=== PATIENT | male | born 1965 | race American Indian/Alaskan Native ===

== ENCOUNTER 2016-04-29 17:07 | Inpatient (IN) | payer SELFPAY ==
--- NOTE | 2016-04-29 18:01 | Emergency Department Report ---
Chief Complaint: Abdominal Pain Stated Complaint: SOB/ABD PAIN/DIZZINESS Time Seen by Provider: 04/29/16 17:46 - HPI History of Present Illness: 50-year-old -I[place]ic male with a past medical history of hypertension and is on lisinopril comes in today for complaint of lower abdominal pain for 4 days. He admits to nausea and vomiting diarrhea as well as fever chills and shortness of breath. Hhe denies using any [id number] medications. Denies dysuria or hematuria - Exam Vital Signs: Vital Signs 04/29/16 17:33 Temperature 98.2 F Pulse Rate 89 Respiratory 20 Rate Blood Pressure 127/92 O2 Sat by Pulse 98 Oximetry Physical Exam: He is alert and oriented 3 cardiovascular S1-S2 regular rate and rhythm respiratory clear tobilateral abdomen soft nontender nondistended. MSE screening note: Focused history and physical exam performed. Due to findings the following was ordered: Dominant protocol order patient be evaluated Main ER ED Disposition for MSE Condition: Stable
[2016-04-29 18:57] LABS: Basophils % (Auto) 0.5 % (0.0-1.8); Eosinophils % (Auto) 0.9 % (0.0-4.3); Hematocrit 41.8 % (35.5-45.6); Hemoglobin 13.9 gm/dl (11.8-15.2); Mean Corpuscular HGB Conc 33 % (32-34); Mean Corpuscular Hemoglobin 29 pg (28-32); Mean Corpuscular Volume 87 fl (84-94); Platelet Count 588 K/mm3 (140-440); Red Blood Count 4.82 M/mm3 (3.65-5.03); Red Cell Distribution Width 15.7 % (13.2-15.2)
[2016-04-29 19:15] LABS: Albumin 4.2 g/dL (3.9-5); Albumin/Globulin Ratio 1.1 %; Alkaline Phosphatase 96 units/L (35-129); Bilirubin,Total 0.8 mg/dL (0.1-1.2); Blood Urea Nitrogen 20 mg/dL (9-20); Calcium 9.2 mg/dL (8.4-10.2); Carbon Dioxide 27 mmol/L (22-30); Chloride 89.7 mmol/L (98-107); Glucose 120 mg/dL (75-100); Lipase 31 units/L (13-60); Sodium 132 mmol/L (137-145); Total Protein 8.2 g/dL (6.3-8.2)
--- NOTE | 2016-04-29 20:10 | Emergency Department Report ---
ED Abdominal Pain HPI - General Chief Complaint: Abdominal Pain Stated Complaint: SOB/ABD PAIN/DIZZINESS Time Seen by Provider: 04/29/16 17:46 Source: patient Mode of arrival: Ambulatory Limitations: No Limitations - History of Present Illness Initial Comments: 50-year-old -Italian male with a past medical history of hypertension and is on lisinopril comes in today for complaint of lower abdominal pain for 4 days. He admits to nausea and vomiting diarrhea as well as fever /chills and shortness of breath. He denies using any [id number] medications. Denies dysuria or hematuria. Patient reports that pain is crampy and achy and 10 out of 10. He reports he was having shortness of breath and exertion earlier today but he is not having any shortness of breath at present. He denies any chest pain. He is located on the lower abdomen. Denies any back pain, testicular or scrotal pain. Patient said the last time he vomited was yesterday times one and the last time he had diarrhea 3 was yesterday. He said he is having some nausea but he denies any nausea at present. pt report no solid food for 4 days but is able to drink beet juice and water Without vomiting. Denies any swelling to his extremities. Denies any personal history of blood clots or family history of blood clots. Denies any hormones. Denies recent long distance travel by plane or car. Denies any calf pain. MD Complaint: abdominal pain Onset/Timin -: days(s) Location: LLQ, RLQ Migration to: no migration Severity: severe Severity scale (0 -10): 10 Quality: cramping, aching Consistency: constant Improves With: nothing Worsens With: nothing Context: other (none) Associated Symptoms: nausea, vomiting, diarrhea, anorexia. denies: fever, chills, constipation, dysuria, hematemesis, hematochezia, melena, hematuria, syncope - Related Data Previous Rx's Medication Instructions Recorded Last Taken Type Cyclobenzaprine [Flexeril] 10 mg PO TID #12 tab 12/28/12 Unknown Rx Hydrocodone Bit/Acetaminophen 1 each PO Q6H PRN #12 tablet 12/28/12 Unknown Rx [Lortab 5-500 Tablet] Dicyclomine [Bentyl] 10 mg PO QID PRN #20 capsule 04/30/16 Unknown Rx Ondansetron [Zofran Odt] 4 mg PO QID PRN #20 tab.rapdis 04/30/16 Unknown Rx Allergies Allergy/AdvReac Type Severity Reaction Status Date / Time No Known Allergies Allergy Unverified 12/28/12 07:07 ED Review of Systems ROS: Stated complaint: SOB/ABD PAIN/DIZZINESS Other details as noted in HPI Comment: All other systems reviewed and negative Constitutional: denies: chills, fever ENT: denies: throat pain Respiratory: shortness of breath, SOB with exertion. denies: cough, SOB at rest , stridor, wheezing Cardiovascular: denies: chest pain, palpitations, edema, syncope Gastrointestinal: abdominal pain, nausea, vomiting, diarrhea. denies: constipation, hematemesis, melena, hematochezia Genitourinary: denies: urgency, dysuria, frequency, hematuria, discharge, testicular pain, testicular mass Musculoskeletal: denies: back pain, joint swelling, arthralgia Skin: denies: rash Neurological: weakness. denies: headache, numbness, paresthesias, confusion, abnormal gait, vertigo ED Past Medical Hx - Past Medical History Previous Medical History?: Yes Hx Hypertension: Yes - Surgical History Past Surgical History?: Yes Additional Surgical History: Back surgery - Family History Family history: hypertension - Social History Smoking Status: Never Smoker Substance Use Type: None - Medications Home Medications: Home Medications Medication Instructions Recorded Confirmed Last Taken Type Cyclobenzaprine [Flexeril] 10 mg PO TID #12 tab 12/28/12 Unknown Rx Hydrocodone Bit/Acetaminophen 1 each PO Q6H PRN #12 tablet 12/28/12 Unknown Rx [Lortab 5-500 Tablet] Dicyclomine [Bentyl] 10 mg PO QID PRN #20 capsule 04/30/16 Unknown Rx Ondansetron [Zofran Odt] 4 mg PO QID PRN #20 tab.rapdis 04/30/16 Unknown Rx ED Physical Exam - General Limitations: No Limitations General appearance: alert, in no apparent distress - Head Head exam: Present: atraumatic, normocephalic, normal inspection - Eye Eye exam: Present: normal appearance, PERRL, EOMI. Absent: conjunctival injection Pupils: Present: normal accommodation - ENT ENT exam: Present: normal exam, normal orophraynx, mucous membranes moist, TM's normal bilaterally, normal external ear exam - Neck Neck exam: Present: normal inspection, full ROM. Absent: tenderness, meningismus, lymphadenopathy - Respiratory Respiratory exam: Present: normal lung sounds bilaterally. Absent: respiratory distress, chest wall tenderness - Cardiovascular Cardiovascular Exam: Present: regular rate, normal rhythm, normal heart sounds - GI/Abdominal GI/Abdominal exam: Present: soft, tenderness, guarding, normal bowel sounds. Absent: distended, rigid, organomegaly, mass, bruit, pulsatile mass, hernia - Extremities Exam Extremities exam: Present: normal inspection, full ROM, normal capillary refill. Absent: tenderness, pedal edema, joint swelling, calf tenderness - Back Exam Back exam: Present: normal inspection, full ROM. Absent: tenderness, CVA tenderness (R), CVA tenderness (L), muscle spasm, paraspinal tenderness, vertebral tenderness, rash noted - Neurological Exam Neurological exam: Present: alert, oriented X3, normal gait, reflexes normal. Absent: motor sensory deficit - Psychiatric Psychiatric exam: Present: normal affect, normal mood - Skin Skin exam: Present: warm, dry, intact, normal color. Absent: rash ED Course Vital Signs 04/29/16 04/29/16 04/30/16 17:33 22:51 01:37 Temperature 98.2 F 98.0 F 99.6 F Pulse Rate 89 76 84 Respiratory 20 18 20 Rate Blood Pressure 127/92 Blood Pressure 145/83 [Left] Blood Pressure 145/86 [Right] O2 Sat by Pulse 98 97 99 Oximetry 04/30/16 08:32 Temperature 98.8 F Pulse Rate 76 Respiratory 18 Rate Blood Pressure Blood Pressure [Left] Blood Pressure 141/81 [Right] O2 Sat by Pulse 100 Oximetry Vital Signs 04/29/16 04/29/16 17:33 22:51 Temperature 98.2 F 98.0 F Pulse Rate 89 76 Respiratory 20 18 Rate Blood Pressure 127/92 Blood Pressure 145/83 [Left] O2 Sat by Pulse 98 97 Oximetry Vital Signs 04/29/16 04/29/16 04/30/16 17:33 22:51 01:37 Temperature 98.2 F 98.0 F 99.6 F Pulse Rate 89 76 84 Respiratory 20 18 20 Rate Blood Pressure 127/92 Blood Pressure 145/83 [Left] Blood Pressure 145/86 [Right] O2 Sat by Pulse 98 97 99 Oximetry 04/30/16 08:32 Temperature 98.8 F Pulse Rate 76 Respiratory 18 Rate Blood Pressure Blood Pressure [Left] Blood Pressure 141/81 [Right] O2 Sat by Pulse 100 Oximetry - Reevaluation(s) Reevaluation #1: 04/29/16 22:47 Patient received normal saline 1 L IV bolus in emergency room and he stated he was feeling better. He denies any nausea or abdominal pain at present. Abdominal exam still with tenderness to lower quadrant. Tenderness is more on the left lower quadrant. She received Toradol 30 mg IV and Zofran 4 mg IV. Sodium was at 132 he received IV fluid normal saline 1 L. patient is afebrile with normal vital signs. Urinalysis within normal limits and kidney function is stable. And then CT scan of the abdomen and pelvis with IV contrast. D- dimer and PT PTT ordered. Patient is neurologically intact given sodium of 132.. Reevaluation #2: 04/30/16 00:14 D-dimer is elevated going CTA Reevaluation #3: 04/30/16 00:18 Additional 1 L of IV fluid normal saline given to the increased risk of IV contrast nephropathy Reevaluation #4: 04/30/16 01:32 I discussed case with Dr. Villa on patient presentation, clinical and diagnostic findings and lab findings. He said he will take patient over and managed patient himself. VQ scan ordered and technologist called in. updated on current event. Reevaluation #5: 04/30/16 01:39 Care of patient was signed over to per his request. Time troponin ordered 04/30/16 04:17 Patient is stable seen and evaluated by Dr. Villa second troponin was negative. 04/30/16 08:[address] Timmons in patient lab work. Patient with elevated platelet at 588, elevated d-dimer and low grade temperature. He also has ileitis to large portion off is ileum with pleural effusion. It was decided the patient will be admitted. Patient lactic acid is a 2.5. Blood cultures and urine cultures sent. Patient started on Zosyn 4.5 g IV. 04/30/16 09:14 Patient will be admitted to hospitalist service. I spoke with Dr. Paige and he will assume care of patient. 04/30/16 09:24 ED Medical Decision Making - Lab Data Result diagrams: 04/29/16 18:41 04/29/16 18:41 Lab Results 04/29/16 04/29/16 04/29/16 Range/Units 18:41 18:41 20:33 WBC 11.0 (4.5-11.0) K/mm3 RBC 4.82 (3.65-5.03) M/mm3 Hgb 13.9 (11.8-15.2) gm/dl Hct 41.8 (35.5-45.6) % MCV 87 (84-94) fl MCH 29 (28-32) pg MCHC 33 (32-34) % RDW 15.7 H (13.2-15.2) % Plt Count 588 H (140-440) K/mm3 Lymph % (Auto) 16.2 (13.4-35.0) % [place] % (Auto) 7.3 (0.0-7.3) % Eos % (Auto) 0.9 (0.0-4.3) % Baso % (Auto) 0.5 (0.0-1.8) % Lymph # 1.8 (1.2-5.4) K/mm3 [place] # 0.8 (0.0-0.8) K/mm3 Eos # 0.1 (0.0-0.4) K/mm3 Baso # 0.1 (0.0-0.1) K/mm3 Seg Neutrophils % 75.1 H (40.0-70.0) % Seg Neutrophils # 8.3 H (1.8-7.7) K/mm3 Sodium 132 L (137-145) mmol/L Potassium 4.6 (3.6-5.0) mmol/L Chloride 89.7 L (98-107) mmol/L Carbon Dioxide 27 (22-30) mmol/L Anion Gap 20 mmol/L BUN 20 (9-20) mg/dL Creatinine 1.0 (0.8-1.5) mg/dL Estimated GFR > 60 ml/min BUN/Creatinine Ratio 20.00 % Glucose 120 H (75-100) mg/dL Calcium 9.2 (8.4-10.2) mg/dL Total Bilirubin 0.8 (0.1-1.2) mg/dL AST 31 (5-40) units/L ALT 38 (7-56) units/L Alkaline Phosphatase 96 (35-129) units/L Total Creatine Kinase 59 (55-170) units/L CK-MB (CK-2) < 1.0 (0.0-4.0) ng/mL CK-MB (CK-2) Rel Index 1.6 (0-4) Troponin T < 0.010 (0.00-0.029) ng/mL Total Protein 8.2 (6.3-8.2) g/dL Albumin 4.2 (3.9-5) g/dL Albumin/Globulin Ratio 1.1 % Lipase 31 (13-60) units/L Urine Color (Yellow) Urine Turbidity (Clear) Urine pH (5.0-7.0) Ur Specific [place] (1.003-1.030) Urine Protein (Negative) mg/dL Urine Glucose (UA) (Negative) mg/dL Urine Ketones (Negative) mg/dL Urine Blood (Negative) Urine Nitrite (Negative) Urine Bilirubin (Negative) Urine Urobilinogen (<2.0) mg/dL Ur Leukocyte Esterase (Negative) Urine WBC (Auto) (0.0-6.0) /HPF Urine RBC (Auto) (0.0-6.0) /HPF U Epithel Cells (Auto) (0-13.0) /HPF Urine Mucus /HPF /16/ Range/Units Unknown WBC (4.5-11.0) K/mm3 RBC (3.65-5.03) M/mm3 Hgb (11.8-15.2) gm/dl Hct (35.5-45.6) % MCV (84-94) fl MCH (28-32) pg MCHC (32-34) % RDW (13.2-15.2) % Plt Count (140-440) K/mm3 Lymph % (Auto) (13.4-35.0) % [place] % (Auto) (0.0-7.3) % Eos % (Auto) (0.0-4.3) % Baso % (Auto) (0.0-1.8) % Lymph # (1.2-5.4) K/mm3 [place] # (0.0-0.8) K/mm3 Eos # (0.0-0.4) K/mm3 Baso # (0.0-0.1) K/mm3 Seg Neutrophils % (40.0-70.0) % Seg Neutrophils # (1.8-7.7) K/mm3 Sodium (137-145) mmol/L Potassium (3.6-5.0) mmol/L Chloride (98-107) mmol/L Carbon Dioxide (22-30) mmol/L Anion Gap mmol/L BUN (9-20) mg/dL Creatinine (0.8-1.5) mg/dL Estimated GFR ml/min BUN/Creatinine Ratio % Glucose (75-100) mg/dL Calcium (8.4-10.2) mg/dL Total Bilirubin (0.1-1.2) mg/dL AST (5-40) units/L ALT (7-56) units/L Alkaline Phosphatase (35-129) units/L Total Creatine Kinase (55-170) units/L CK-MB (CK-2) (0.0-4.0) ng/mL CK-MB (CK-2) Rel Index (0-4) Troponin T (0.00-0.029) ng/mL Total Protein (6.3-8.2) g/dL Albumin (3.9-5) g/dL Albumin/Globulin Ratio % Lipase (13-60) units/L Urine Color Char (Yellow) Urine Turbidity Clear (Clear) Urine pH 6.0 (5.0-7.0) Ur Specific [place] 1.020 (1.003-1.030) Urine Protein <15 mg/dl (Negative) mg/dL Urine Glucose (UA) Neg (Negative) mg/dL Urine Ketones Neg (Negative) mg/dL Urine Blood Neg (Negative) Urine Nitrite Neg (Negative) Urine Bilirubin Neg (Negative) Urine Urobilinogen 4.0 (<2.0) mg/dL Ur Leukocyte Esterase Neg (Negative) Urine WBC (Auto) 1.0 (0.0-6.0) /HPF Urine RBC (Auto) 1.0 (0.0-6.0) /HPF U Epithel Cells (Auto) < 1.0 (0-13.0) /HPF Urine Mucus Few /HPF Urine culture pending Blood culture pending Lactic acid at 2.5 Lab Results 03/16/17 03/16/17 03/16/17 Range/Units 18:41 18:41 20:33 WBC 11.0 (4.5-11.0) K/mm3 RBC 4.82 (3.65-5.03) M/mm3 Hgb 13.9 (11.8-15.2) gm/dl Hct 41.8 (35.5-45.6) % MCV 87 (84-94) fl MCH 29 (28-32) pg MCHC 33 (32-34) % RDW 15.7 H (13.2-15.2) % Plt Count 588 H (140-440) K/mm3 Lymph % (Auto) 16.2 (13.4-35.0) % [place] % (Auto) 7.3 (0.0-7.3) % Eos % (Auto) 0.9 (0.0-4.3) % Baso % (Auto) 0.5 (0.0-1.8) % Lymph # 1.8 (1.2-5.4) K/mm3 [place] # 0.8 (0.0-0.8) K/mm3 Eos # 0.1 (0.0-0.4) K/mm3 Baso # 0.1 (0.0-0.1) K/mm3 Seg Neutrophils % 75.1 H (40.0-70.0) % Seg Neutrophils # 8.3 H (1.8-7.7) K/mm3 PT (12.2-14.9) Sec. INR (0.87-1.13) APTT (24.2-36.6) Sec. D-Dimer (0-234) ng/mlDDU VBG pH (7.320-7.420) Sodium 132 L (137-145) mmol/L Potassium 4.6 (3.6-5.0) mmol/L Chloride 89.7 L (98-107) mmol/L Carbon Dioxide 27 (22-30) mmol/L Anion Gap 20 mmol/L BUN 20 (9-20) mg/dL Creatinine 1.0 (0.8-1.5) mg/dL Estimated GFR > 60 ml/min BUN/Creatinine Ratio 20.00 % Glucose 120 H (75-100) mg/dL Lactic Acid (0.7-2.0) mmol/L Calcium 9.2 (8.4-10.2) mg/dL Total Bilirubin 0.8 (0.1-1.2) mg/dL AST 31 (5-40) units/L ALT 38 (7-56) units/L Alkaline Phosphatase 96 (35-129) units/L Total Creatine Kinase 59 (55-170) units/L CK-MB (CK-2) < 1.0 (0.0-4.0) ng/mL CK-MB (CK-2) Rel Index 1.6 (0-4) Troponin T < 0.010 (0.00-0.029) ng/mL Total Protein 8.2 (6.3-8.2) g/dL Albumin 4.2 (3.9-5) g/dL Albumin/Globulin Ratio 1.1 % Lipase 31 (13-60) units/L Urine Color (Yellow) Urine Turbidity (Clear) Urine pH (5.0-7.0) Ur Specific [place] (1.003-1.030) Urine Protein (Negative) mg/dL Urine Glucose (UA) (Negative) mg/dL Urine Ketones (Negative) mg/dL Urine Blood (Negative) Urine Nitrite (Negative) Urine Bilirubin (Negative) Urine Urobilinogen (<2.0) mg/dL Ur Leukocyte Esterase (Negative) Urine WBC (Auto) (0.0-6.0) /HPF Urine RBC (Auto) (0.0-6.0) /HPF U Epithel Cells (Auto) (0-13.0) /HPF Urine Mucus /HPF 04/29/16 04/29/16 04/30/16 Range/Units 22:54 Unknown 01:56 WBC (4.5-11.0) K/mm3 RBC (3.65-5.03) M/mm3 Hgb (11.8-15.2) gm/dl Hct (35.5-45.6) % MCV (84-94) fl MCH (28-32) pg MCHC (32-34) % RDW (13.2-15.2) % Plt Count (140-440) K/mm3 Lymph % (Auto) (13.4-35.0) % [place] % (Auto) (0.0-7.3) % Eos % (Auto) (0.0-4.3) % Baso % (Auto) (0.0-1.8) % Lymph # (1.2-5.4) K/mm3 [place] # (0.0-0.8) K/mm3 Eos # (0.0-0.4) K/mm3 Baso # (0.0-0.1) K/mm3 Seg Neutrophils % (40.0-70.0) % Seg Neutrophils # (1.8-7.7) K/mm3 PT 13.2 (12.2-14.9) Sec. INR 1.01 (0.87-1.13) APTT 31.2 (24.2-36.6) Sec. D-Dimer 9706.95 H (0-234) ng/mlDDU VBG pH (7.320-7.420) Sodium (137-145) mmol/L Potassium (3.6-5.0) mmol/L Chloride (98-107) mmol/L Carbon Dioxide (22-30) mmol/L Anion Gap mmol/L BUN (9-20) mg/dL Creatinine (0.8-1.5) mg/dL Estimated GFR ml/min BUN/Creatinine Ratio % Glucose (75-100) mg/dL Lactic Acid (0.7-2.0) mmol/L Calcium (8.4-10.2) mg/dL Total Bilirubin (0.1-1.2) mg/dL AST (5-40) units/L ALT (7-56) units/L Alkaline Phosphatase (35-129) units/L Total Creatine Kinase (55-170) units/L CK-MB (CK-2) (0.0-4.0) ng/mL CK-MB (CK-2) Rel Index (0-4) Troponin T < 0.010 (0.00-0.029) ng/mL Total Protein (6.3-8.2) g/dL Albumin (3.9-5) g/dL Albumin/Globulin Ratio % Lipase (13-60) units/L Urine Color Char (Yellow) Urine Turbidity Clear (Clear) Urine pH 6.0 (5.0-7.0) Ur Specific [place] 1.020 (1.003-1.030) Urine Protein <15 mg/dl (Negative) mg/dL Urine Glucose (UA) Neg (Negative) mg/dL Urine Ketones Neg (Negative) mg/dL Urine Blood Neg (Negative) Urine Nitrite Neg (Negative) Urine Bilirubin Neg (Negative) Urine Urobilinogen 4.0 (<2.0) mg/dL Ur Leukocyte Esterase Neg (Negative) Urine WBC (Auto) 1.0 (0.0-6.0) /HPF Urine RBC (Auto) 1.0 (0.0-6.0) /HPF U Epithel Cells (Auto) < 1.0 (0-13.0) /HPF Urine Mucus Few /HPF 04/30/16 04/30/16 Range/Units 07:09 07:09 WBC (4.5-11.0) K/mm3 RBC (3.65-5.03) M/mm3 Hgb (11.8-15.2) gm/dl Hct (35.5-45.6) % MCV (84-94) fl MCH (28-32) pg MCHC (32-34) % RDW (13.2-15.2) % Plt Count (140-440) K/mm3 Lymph % (Auto) (13.4-35.0) % [place] % (Auto) (0.0-7.3) % Eos % (Auto) (0.0-4.3) % Baso % (Auto) (0.0-1.8) % Lymph # (1.2-5.4) K/mm3 [place] # (0.0-0.8) K/mm3 Eos # (0.0-0.4) K/mm3 Baso # (0.0-0.1) K/mm3 Seg Neutrophils % (40.0-70.0) % Seg Neutrophils # (1.8-7.7) K/mm3 PT (12.2-14.9) Sec. INR (0.87-1.13) APTT (24.2-36.6) Sec. D-Dimer (0-234) ng/mlDDU VBG pH 7.356 (7.320-7.420) Sodium (137-145) mmol/L Potassium (3.6-5.0) mmol/L Chloride (98-107) mmol/L Carbon Dioxide (22-30) mmol/L Anion Gap mmol/L BUN (9-20) mg/dL Creatinine (0.8-1.5) mg/dL Estimated GFR ml/min BUN/Creatinine Ratio % Glucose (75-100) mg/dL Lactic Acid 2.5 H* (0.7-2.0) mmol/L Calcium (8.4-10.2) mg/dL Total Bilirubin (0.1-1.2) mg/dL AST (5-40) units/L ALT (7-56) units/L Alkaline Phosphatase (35-129) units/L Total Creatine Kinase (55-170) units/L CK-MB (CK-2) (0.0-4.0) ng/mL CK-MB (CK-2) Rel Index (0-4) Troponin T (0.00-0.029) ng/mL Total Protein (6.3-8.2) g/dL Albumin (3.9-5) g/dL Albumin/Globulin Ratio % Lipase (13-60) units/L Urine Color (Yellow) Urine Turbidity (Clear) Urine pH (5.0-7.0) Ur Specific [place] (1.003-1.030) Urine Protein (Negative) mg/dL Urine Glucose (UA) (Negative) mg/dL Urine Ketones (Negative) mg/dL Urine Blood (Negative) Urine Nitrite (Negative) Urine Bilirubin (Negative) Urine Urobilinogen (<2.0) mg/dL Ur Leukocyte Esterase (Negative) Urine WBC (Auto) (0.0-6.0) /HPF Urine RBC (Auto) (0.0-6.0) /HPF U Epithel Cells (Auto) (0-13.0) /HPF Urine Mucus /HPF - EKG Data -: EKG Interpreted by Ms EKG shows normal: sinus rhythm - EKG Data Interpretation: no acute changes - Radiology Data Radiology results: report reviewed Chest x-ray revealed no acute cardiopulmonary findings. VQ scan negative CT scan of the abdomen and pelvis with IV contrast revealed distal ileum with ileitis. fatty liver, prostate hypertrophy. Atelectasis left lung and small right pleural effusion. - Medical Decision Making ED course: Patient came to the emergency room for gastrointestinal complaints along with some shortness of breath. X-ray results results showed no cardiopulmonary processes, CT scan of abdomen and pelvis showed ileitis, left pleural effusion and atelectasis. Patient CBC showed minimal left shift, d- dimer is elevated. VQ scan done negative for PE. With elevation of d-dimer, increased platelet at 588 and slight shift to the left CBC, patient with ileitis. Lactic acid at 2.5 and was decided the patient would be admitted in hospital a sepsis and will be treated with IV fluid and antibiotic and monitored. Hospitalist service assumed care of patient and patient are given to transfer to [facility] floor. Patient cardiac enzymes were negative and his EKG did not show any acute findings. Patient received a total of 21/2 half liters of normal saline which she tolerated well. Blood cultures and urine cultures sent and patient started on maintenance D5 half-normal saline at 125 an hour per hospitalist. Decision to admit was discussed with patient and even though he is reluctant he agrees and vital signs are stable and is in stable condition at present. Critical care attestation.: If time is entered above; I have spent that time in minutes in the direct care of this critically ill patient, excluding procedure time. ED Disposition Clinical Impression: Ileitis, Nausea and vomiting in adult, Hyponatremia, SOB (shortness of breath) , Thrombocytosis, Lactic acidosis Abdominal pain Qualifiers: Abdominal location: lower abdomen, unspecified Qualified Code(s): R10.30 - Lower abdominal pain, unspecified Sepsis Qualifiers: Sepsis type: Streptococcus, unspecified Qualified Code(s): A40.9 - Streptococcal sepsis, unspecified; A40 - Streptococcal sepsis Disposition: OP ADMITTED IP TO THIS HOSP Is pt being admited?: Yes Does the pt Need Aspirin: No Condition: Stable Prescriptions: Dicyclomine [Bentyl] 10 mg PO QID PRN #20 capsule PRN Reason: Pain Ondansetron [Zofran Odt] 4 mg PO QID PRN #20 tab.rapdis PRN Reason: Nausea
[2016-04-29] MEDS ORDERED: ZOFRAN IV ONE (20:16)
[2016-04-29] MEDS ORDERED: NACL 0.9% 1000 ML 1,000 ML IV ONE (20:16)
[2016-04-29] MEDS ORDERED: TORADOL IV ONE (20:18)
[2016-04-29 20:27] LABS: Alanine Aminotransferase 38 units/L (7-56); Anion Gap 20 mmol/L; Potassium 4.6 mmol/L (3.6-5.0)
--- NOTE | 2016-04-29 21:23 | XRay Report ---
FINAL REPORT PROCEDURE: XR CHEST ROUTINE 2V TECHNIQUE: PA and lateral chest radiographs were obtained. CPT 00818 HISTORY: Shortness of breath COMPARISON: No prior studies are available for comparison. FINDINGS: Heart: Normal contour. Mediastinum/Vessels: Normal contour. Lungs/Pleural space: No infiltrate, effusion, or pneumothorax. Bony thorax: Irregular contour of the left clavicle may be related to old trauma.. Other: IMPRESSION: No pulmonary infiltrates are identified.
[2016-04-29 21:25] LABS: Bilirubin,Urine NEG (Negative); Blood,Urine NEG (Negative); Ketones,Urine NEG (Negative); Leukocyte Esterase,Urine NEG (Negative); Mucus,Urine FEW /HPF; Nitrite,Urine NEG (Negative); Protein,Urine <15 mg/dL mg/dL (Negative)
[2016-04-29 21:25] LABS: Creatine Kinase 59 units/L (55-170)
[2016-04-29 21:32] LABS: Creatine Kinase MB < 1.0 ng/mL (0.0-4.0)
[2016-04-29 23:25] LABS: INR 1.01 (0.87-1.13); Partial Thromboplastin Time 31.2 Sec. (24.2-36.6)
--- NOTE | 2016-04-29 23:42 | Cat Scan Report ---
FINAL REPORT EXAM: CT ABDOMEN PELVIS W CON HISTORY: abdominal pain TECHNIQUE: Dynamic helical CT scan through the abdomen and pelvis during and again after bolus injection of iodinated contrast. Images are reconstructed in the sagittal and coronal planes. Oral contrast was not given. PRIORS: None. FINDINGS: Images through the lung bases show a small patchy opacity in the left lung base. There is a small right pleural effusion. There is diffuse low-attenuation of the liver consistent with fatty infiltration. Otherwise, the liver appears normal.The gallbladder, pancreas, spleen and adrenal glands appear normal. The kidneys appear normal. The prostate is enlarged measuring 4.0 x 5.7 cm. The seminal vesicles and bladder appear grossly normal. The stomach appears grossly within normal limits. There is a small amount of free pelvic fluid. Most of the small bowel appears normal but there is edema and wall thickening of a fairly long segment of distal ileum in the right lower quadrant. There is no evidence of bowel obstruction. The colon appears grossly normal. A normal-appearing appendix is identified. The abdominal aorta has a normal diameter. There has been previous posterior from L4 through S1. There a 2.7 x 1.9 cm cystic lesion in the subcutaneous fat of the left back most likely representing a sebaceous cyst. IMPRESSION: 1. Edema and wall thickening of a fairly long segment of the distal ileum consistent with ileitis. 2. Small patchy opacity in the left lung base most likely representing subsegmental atelectasis. 3. Diffuse fatty infiltration of the liver 4. Prostatic hypertrophy 5. Small right pleural effusion
[2016-04-30] MEDS ORDERED: NACL 0.9% 1000 ML 1,000 ML IV ONE (00:17)
--- NOTE | 2016-04-30 02:57 | Nuclear Medicine Report ---
FINAL REPORT PROCEDURE: NM LUNG SCAN PERF/VENT TECHNIQUE: 5 mCi Tc-99m MAA was injected IV for pulmonary perfusion imaging in multiple projections. 15 MCi xenon was inhaled for pulmonary ventilation imaging in multiple projections. Injection site: RIGHT antecubital fossa. CPT 99862 REGULATORY GUIDELINES: The patient was released based upon guidelines established in [place] State Regulations for Protection Against Radiation, Chapter 6672-64-05-35, Release of Individuals Containing Radioactive Drugs or Implants. HISTORY: SOB with elevated D dimer COMPARISON: No prior studies are available for comparison. FINDINGS: Perfusion: No defects . Ventilation: No defects . IMPRESSION: Normal Examination
--- NOTE | 2016-04-30 04:11 | Event Note ---
Date: 04/30/16 This is a 50-year-old male, he is previously unknown to me. He presented to the ER with a few days of lower abdominal pain. When I evaluated him, his abdominal pain had essentially resolved. His abdomen is nontender, with no rebound, guarding or peritoneal signs. He had no chest pain, and to me he denies shortness of breath, cough, mucus production. He reported that he was not eating and drinking as much she typically ate and drank over the past week, and therefore felt somewhat lightheaded. A CT scan of the abdomen and pelvis demonstrated edema and wall thickening of a long segment of the distal ileum consistent with ileitis. A small patchy opacity was noted in the left lung base, which was most likely consistent with atelectasis. He has no pulmonary embolus or DVT risk factors, he is low risk by well's criteria, troponins negative 2, with negative chest pain, and a low probability nuclear medicine study. His physical examination is unremarkable, vital signs and laboratory studies are unremarkable. I believe the patient is suitable to follow up with outpatient primary care, gastroenterology, . He will be discharged at this time. Return precautions were extensively reviewed. Vital Signs 04/29/16 04/29/16 04/30/16 17:33 22:51 01:37 Temperature 98.2 F 98.0 F 99.6 F Pulse Rate 89 76 84 Respiratory 20 18 20 Rate Blood Pressure 127/92 Blood Pressure 145/83 [Left] Blood Pressure 145/86 [Right] O2 Sat by Pulse 98 97 99 Oximetry Labs 04/29/16 04/29/16 04/29/16 18:41 18:41 20:33 WBC 11.0 RBC 4.82 Hgb 13.9 Hct 41.8 MCV 87 MCH 29 MCHC 33 RDW 15.7 H Plt Count 588 H Lymph % (Auto) 16.2 [place] % (Auto) 7.3 Eos % (Auto) 0.9 Baso % (Auto) 0.5 Lymph # 1.8 [place] # 0.8 Eos # 0.1 Baso # 0.1 Seg Neutrophils % 75.1 H Seg Neutrophils # 8.3 H PT INR APTT D-Dimer Sodium 132 L Potassium 4.6 Chloride 89.7 L Carbon Dioxide 27 Anion Gap 20 BUN 20 Creatinine 1.0 Estimated GFR > 60 BUN/Creatinine Ratio 20.00 Glucose 120 H Calcium 9.2 Total Bilirubin 0.8 AST 31 ALT 38 Alkaline Phosphatase 96 Total Creatine Kinase 59 CK-MB (CK-2) < 1.0 CK-MB (CK-2) Rel Index 1.6 Troponin T < 0.010 Total Protein 8.2 Albumin 4.2 Albumin/Globulin Ratio 1.1 Lipase 31 Urine Color Urine Turbidity Urine pH Ur Specific [place] Urine Protein Urine Glucose (UA) Urine Ketones Urine Blood Urine Nitrite Urine Bilirubin Urine Urobilinogen Ur Leukocyte Esterase Urine WBC (Auto) Urine RBC (Auto) U Epithel Cells (Auto) Urine Mucus 04/29/16 04/29/16 04/30/16 22:54 Unknown 01:56 WBC RBC Hgb Hct MCV MCH MCHC RDW Plt Count Lymph % (Auto) [place] % (Auto) Eos % (Auto) Baso % (Auto) Lymph # [place] # Eos # Baso # Seg Neutrophils % Seg Neutrophils # PT 13.2 INR 1.01 APTT 31.2 D-Dimer 9706.95 H Sodium Potassium Chloride Carbon Dioxide Anion Gap BUN Creatinine Estimated GFR BUN/Creatinine Ratio Glucose Calcium Total Bilirubin AST ALT Alkaline Phosphatase Total Creatine Kinase CK-MB (CK-2) CK-MB (CK-2) Rel Index Troponin T < 0.010 Total Protein Albumin Albumin/Globulin Ratio Lipase Urine Color Char Urine Turbidity Clear Urine pH 6.0 Ur Specific [place] 1.020 Urine Protein <15 mg/dl Urine Glucose (UA) Neg Urine Ketones Neg Urine Blood Neg Urine Nitrite Neg Urine Bilirubin Neg Urine Urobilinogen 4.0 Ur Leukocyte Esterase Neg Urine WBC (Auto) 1.0 Urine RBC (Auto) 1.0 U Epithel Cells (Auto) < 1.0 Urine Mucus Few
[2016-04-30] MEDS ORDERED: NACL 0.9% 500 ML 500 ML IV ONE (07:07)
[2016-04-30] MEDS ORDERED: ZOSYN/NS 4.5GM/100ML 4.5 GM/100 ML VIAL IV ONE (07:07)
--- NOTE | 2016-04-30 08:25 | Admit Criteria Form ---
Admission Criteria Documentation: ABDOMINAL PAIN Clinical Indications for Admission to Inpatient Care (Place 'X' for any and all applicable criteria): Admission is indicated for ANY ONE of the following(1)(2)(3)(4)(5): [X ]I. Inpatient admission required rather than observation care (Also use Abdominal Pain: Observation Care, as appropriate) because of ANY ONE of the following: [ ]a) Severe pain requiring acute inpatient management [ ]b) Identification of etiology/finding that requires inpatient care (eg, aortic dissection, free air) [ ]c) Absent bowel sounds with complete ileus(6) [ ]d) Suspected toxic megacolon [ ]e) Severe electrolyte abnormalities requiring inpatient care [ ]f) High fever or infection requiring inpatient admission as indicated by ANY ONE of following(7)(8): [ ] i) Appropriate outpatient or observational care antimicrobial treatment unavailable, not effective, or not feasible [ ] ii) Documented bacteremia [ ] iii) Temperature > 104.9 degrees F (oral) [ ] iv) T >103.1 F (oral) or < 96.8 F(rectal) that does not respond to all emergency treatment measures [ ]g) Signs of intestinal obstruction [B] [ ]h) Hemodynamic instability [ ]i) IV fluid to replace significant ongoing losses (greater than 3 L/m2 per day) (12)(13) [ ]j) Percutaneous or open drainage (eg, abscess, biliary tract ) procedures [ ]k) Parenteral nutrition regimen that must be implemented on inpatient basis [X ]l) Other condition,treatment or monitoring requiring inpatient admission. [ ]II. Peritoneal signs present [ ]III. Surgery needed that cannot be performed on an ambulatory basis. [ ]IV. Evaluation requires patient to not eat or drink for extended period ( eg, more than 24 hours). [ ]V. Contraindications and/or Inappropriate clinical situations for Observational Care in patients with abdominal pain, when ANY ONE of the following is required: [ ]a) Thorough evaluation is required to prevent catastrophic events due to delays in diagnosing (e.g.Mesenteric ischemia) 1,3 [ ]b) Patient with severe pathology or with chronic symptoms unlikely to improve in the ED stay (3) [ ]. General contraindications and/or Inappropriate clinical situations for Observational Care in patients with abdominal pain, when ANY ONE of the following is required: [ ]a) Prediction of prolongation of LOS based on ANY ONE of the following may be considered as a contraindication for observational care 2, 3, 4, 5, 6, 7, 8, 9, 10, 11 [ ]i) Age > 65 yrs. [ ]ii) Patient arriving by ambulance [ ]iii) Patient with high acuity [ ]iv) Patient requiring vital sign monitoring [ ]v) Patient on IV medication [ ]b) Systolic blood pressures 180mmHg 3,12 [ ]c) Patient with altered mental status including delirium and other alteration of consciousness, (3) [ ]d) Patient whose discharge disposition will be to a longterm home or rehabilitation home should not be managed in Emergency Department Observation Unit. CMS rule requires 3 days hospital stay before such placement.3,13 [ ]e) Patient with failure to thrive due to broad array of etiologies 3,16,17 [ ]f) Inability to ambulate 3,14 Extended stay beyond goal length of stay may be needed for(2)(3): [ ]a) Persistent abdominal pain with suspected intra-abdominal process [ ]b) Diagnosed condition requiring continued stay (e.g., pancreatitis, complicated diverticulitis) [ ]c) Surgery (e.g., colectomy) The original [facility] content created by [employer] has been revised. The portions of the content which have been revised are identified through the use of italic text or in bold, and [facility] has neither reviewed nor approved the modified material.All other unmodified content is copyright [facility]. Please see references footnoted in the original [facility] edition 2016 Admission Criteria Met: Yes
[2016-04-30] MEDS ORDERED: MORPHINE IV PRN (09:49)
--- NOTE | 2016-04-30 09:56 | History and Physical Report ---
History of Present Illness Date of examination: 04/30/16 Date of admission: 04/30/16 Chief complaint: Abdominal pain nausea vomiting Medications and Allergies Allergies Allergy/AdvReac Type Severity Reaction Status Date / Time No Known Allergies Allergy Unverified 12/28/12 07:07 Home Medications Medication Instructions Recorded Confirmed Last Taken Type Cyclobenzaprine [Flexeril] 10 mg PO TID #12 tab 12/28/12 Unknown Rx Hydrocodone Bit/Acetaminophen 1 each PO Q6H PRN #12 tablet 12/28/12 Unknown Rx [Lortab 5-500 Tablet] Dicyclomine [Bentyl] 10 mg PO QID PRN #20 capsule 04/30/16 Unknown Rx Ondansetron [Zofran Odt] 4 mg PO QID PRN #20 tab.rapdis 04/30/16 Unknown Rx Active Meds: Active Medications Dextrose/Sodium Chloride (D5/0.45ns) 1,000 mls @ 125 mls/hr IV DIRECT SUSHIL Exam - Constitutional Vitals: Temp Pulse Resp BP Pulse Ox 98.8 F 76 18 141/81 100 04/30/16 08:32 04/30/16 08:32 04/30/16 08:32 04/30/16 08:32 04/30/16 08:32 Results - Labs CBC & Chem 7: 04/29/16 18:41 04/29/16 18:41 Labs: Abnormal lab results 04/29/16 04/29/16 04/29/16 Range/Units 18:41 18:41 22:54 RDW 15.7 H (13.2-15.2) % Plt Count 588 H (140-440) K/mm3 Seg Neutrophils % 75.1 H (40.0-70.0) % Seg Neutrophils # 8.3 H (1.8-7.7) K/mm3 D-Dimer 9706.95 H (0-234) ng/mlDDU Sodium 132 L (137-145) mmol/L Chloride 89.7 L (98-107) mmol/L Glucose 120 H (75-100) mg/dL Lactic Acid (0.7-2.0) mmol/L 04/30/16 Range/Units 07:09 RDW (13.2-15.2) % Plt Count (140-440) K/mm3 Seg Neutrophils % (40.0-70.0) % Seg Neutrophils # (1.8-7.7) K/mm3 D-Dimer (0-234) ng/mlDDU Sodium (137-145) mmol/L Chloride (98-107) mmol/L Glucose (75-100) mg/dL Lactic Acid 2.5 H* (0.7-2.0) mmol/L Assessment and Plan 1. Abdominal pain secondary to acute ileitis: IV fluid, IV Levaquin and Flagyl. 2. SIIRS: The patient has elevated lactic acid level. We'll obtain blood cultures urine culture. Patient already on Levaquin. We'll trend lactic acid level. 3. DVT PPX with lovenox and GI with pepcid Spend 32 min in direct pt care ans morena of lab an radiological date
[2016-04-30] MEDS: FLAGYL 500 MG/100 ML 500 MG/100 ML BAG IV SCH ×3 (10:00→22:03)
[2016-04-30] MEDS ORDERED: NORCO 5/325 PO PRN ×2 (10:33)
[2016-04-30] MEDS: LEVAQUIN 750MG/150ML 750 MG/150 ML BAG IV SCH (10:40)
[2016-04-30] MEDS: HEPARIN SUB-Q SCH ×3 (10:42→22:04)
[2016-04-30] MEDS: D5/0.45NS 1,000 ML IV SCH (10:42)
[2016-05-01] MEDS: D5/0.45NS 1,000 ML IV SCH ×2 (00:45→22:49)
[2016-05-01] MEDS: FLAGYL 500 MG/100 ML 500 MG/100 ML BAG IV SCH ×3 (05:08→22:42)
[2016-05-01] MEDS: HEPARIN SUB-Q SCH ×2 (09:25→22:43)
[2016-05-01] MEDS: LEVAQUIN 750MG/150ML 750 MG/150 ML BAG IV SCH (09:25)
--- NOTE | 2016-05-01 14:09 | Progress Note ---
Assessment and Plan - Patient Problems (1) Inflammatory bowel disease Current Visit: Yes Status: Acute Plan to address problem: bowel rest, steroids, iv abx, supportive care, (2) Ileitis Current Visit: Yes Status: Acute Plan to address problem: Suspicious for IBD. Pt counseled, bowel rest, IVF, antiemetics, supportive care , Outpatient GI f/u (3) Abdominal pain Current Visit: Yes Status: Acute Qualifiers: Abdominal location: lower abdomen, unspecified Qualified Code(s): R10.30 - Lower abdominal pain, unspecified Plan to address problem: secondary to ileitis, supportive care, advance diet as tolerated. (4) Lactic acidosis Current Visit: Yes Status: Resolved Plan to address problem: IVF, supportive care, (5) DVT prophylaxis Current Visit: Yes Status: Acute History Interval history: Pt sitting on side of bed, Pt states that he still has abdominal discomfort, but he feels much better today. Pt denies fever, NVD, Hospitalist Physical - Constitutional Vitals: Temp Pulse Resp BP Pulse Ox 97.7 F 68 18 120/82 97 05/01/16 08:00 05/01/16 08:00 05/01/16 08:19 05/01/16 08:00 05/01/16 08:00 General appearance: Present: mild distress - EENT Eyes: Present: PERRL, EOM intact ENT: hearing intact - Neck Neck: Present: supple - Respiratory Respiratory: bilateral: CTA - Cardiovascular Rhythm: regular Heart Sounds: Present: S1 & S2 - Extremities Extremities: no ischemia Peripheral Pulses: within normal limits - Abdominal General gastrointestinal: soft, non-distended, normal bowel sounds, no distended , no rigid, no hepatomegaly, no splenomegaly, no mass, no hernia Localized gastrointestinal: tender: epigastric periumbilical - Integumentary Integumentary: Present: clear, warm, dry - Psychiatric Psychiatric: appropriate mood/affect, agitated - Neurologic Neurologic: CNII-XII intact, moves all extremities, gait normal Results - Labs CBC & Chem 7: 04/29/16 18:41 04/29/16 18:41 Labs: Laboratory Last Values WBC 11.0 K/mm3 (4.5-11.0) 04/29/16 18:41 RBC 4.82 M/mm3 (3.65-5.03) 03/16/17 18:41 Hgb 13.9 gm/dl (11.8-15.2) 04/29/16 18:41 Hct 41.8 % (35.5-45.6) 04/29/16 18:41 MCV 87 fl (84-94) 04/29/16 18:41 MCH 29 pg (28-32) 04/29/16 18:41 MCHC 33 % (32-34) 04/29/16 18:41 RDW 15.7 % (13.2-15.2) H 04/29/16 18:41 Plt Count 588 K/mm3 (140-440) H 04/29/16 18:41 Lymph % (Auto) 16.2 % (13.4-35.0) 04/29/16 18:41 [place] % (Auto) 7.3 % (0.0-7.3) 04/29/16 18:41 Eos % (Auto) 0.9 % (0.0-4.3) 04/29/16 18:41 Baso % (Auto) 0.5 % (0.0-1.8) 04/29/16 18:41 Lymph # 1.8 K/mm3 (1.2-5.4) 04/29/16 18:41 [place] # 0.8 K/mm3 (0.0-0.8) 04/29/16 18:41 Eos # 0.1 K/mm3 (0.0-0.4) 04/29/16 18:41 Baso # 0.1 K/mm3 (0.0-0.1) 04/29/16 18:41 Seg Neutrophils % 75.1 % (40.0-70.0) H 04/29/16 18:41 Seg Neutrophils # 8.3 K/mm3 (1.8-7.7) H 04/29/16 18:41 PT 13.2 Sec. (12.2-14.9) 04/29/16 22:54 INR 1.01 (0.87-1.13) 04/29/16 22:54 APTT 31.2 Sec. (24.2-36.6) 04/29/16 22:54 D-Dimer 9706.95 ng/mlDDU (0-234) H 04/29/16 22:54 VBG pH 7.356 (7.320-7.420) 04/30/16 07:09 Sodium 132 mmol/L (137-145) L 04/29/16 18:41 Potassium 4.6 mmol/L (3.6-5.0) 04/29/16 18:41 Chloride 89.7 mmol/L (98-107) L 04/29/16 18:41 Carbon Dioxide 27 mmol/L (22-30) 04/29/16 18:41 Anion Gap 20 mmol/L 04/29/16 18:41 BUN 20 mg/dL (9-20) 04/29/16 18:41 Creatinine 1.0 mg/dL (0.8-1.5) 04/29/16 18:41 Estimated GFR > 60 ml/min 04/29/16 18:41 BUN/Creatinine Ratio 20.00 % 04/29/16 18:41 Glucose 120 mg/dL (75-100) H 04/29/16 18:41 Lactic Acid 0.9 mmol/L (0.7-2.0) 04/30/16 10:22 Calcium 9.2 mg/dL (8.4-10.2) 04/29/16 18:41 Total Bilirubin 0.8 mg/dL (0.1-1.2) 04/29/16 18:41 AST 31 units/L (5-40) 04/29/16 18:41 ALT 38 units/L (7-56) 04/29/16 18:41 Alkaline Phosphatase 96 units/L (35-129) 04/29/16 18:41 Total Creatine Kinase 59 units/L (55-170) 04/29/16 20:33 CK-MB (CK-2) < 1.0 ng/mL (0.0-4.0) 04/29/16 20:33 CK-MB (CK-2) Rel Index 1.6 (0-4) 04/29/16 20:33 Troponin T < 0.010 ng/mL (0.00-0.029) 04/30/16 01:56 Total Protein 8.2 g/dL (6.3-8.2) 04/29/16 18:41 Albumin 4.2 g/dL (3.9-5) 04/29/16 18:41 Albumin/Globulin Ratio 1.1 % 04/29/16 18:41 Lipase 50 units/L (13-60) 04/30/16 10:22 Urine Color Char (Yellow) 04/29/16 Unknown Urine Turbidity Clear (Clear) 04/29/16 Unknown Urine pH 6.0 (5.0-7.0) 04/29/16 Unknown Ur Specific [place] 1.020 (1.003-1.030) 04/29/16 Unknown Urine Protein <15 mg/dl mg/dL (Negative) 04/29/16 Unknown Urine Glucose (UA) Neg mg/dL (Negative) 04/29/16 Unknown Urine Ketones Neg mg/dL (Negative) 04/29/16 Unknown Urine Blood Neg (Negative) 04/29/16 Unknown Urine Nitrite Neg (Negative) 04/29/16 Unknown Urine Bilirubin Neg (Negative) 04/29/16 Unknown Urine Urobilinogen 4.0 mg/dL (<2.0) 04/29/16 Unknown Ur Leukocyte Esterase Neg (Negative) 04/29/16 Unknown Urine WBC (Auto) 1.0 /HPF (0.0-6.0) 04/29/16 Unknown Urine RBC (Auto) 1.0 /HPF (0.0-6.0) 04/29/16 Unknown U Epithel Cells (Auto) < 1.0 /HPF (0-13.0) 04/29/16 Unknown Urine Mucus Few /HPF 04/29/16 Unknown
[2016-05-02] MEDS: LEVAQUIN 750MG/150ML 750 MG/150 ML BAG IV SCH (09:22)
[2016-05-02] MEDS: HEPARIN SUB-Q SCH (09:23)
[2016-05-02 11:54] VITALS: BP 158/88
--- NOTE | 2016-05-03 05:26 | Discharge Summary ---
Providers - Providers Date of Admission: 04/30/16 09:46 Attending physician: SHERLYN KINSEY Primary care physician: PEST CONTR[employer] TECHNICIAN Hospitalization Condition: Stable Disposition: DISCHARGED TO HOME OR SELFCARE - Discharge Diagnoses (1) Inflammatory bowel disease Status: Acute (2) Ileitis Status: Acute (3) Abdominal pain Status: Acute Qualifiers: Abdominal location: lower abdomen, unspecified Qualified Code(s): R10.30 - Lower abdominal pain, unspecified (4) Lactic acidosis Status: Resolved (5) DVT prophylaxis Status: Acute Exam - Constitutional Vitals: Temp Pulse Resp BP Pulse Ox 98.2 F 78 20 158/88 98 05/02/16 11:53 05/02/16 11:53 05/02/16 11:53 05/02/16 11:53 05/02/16 11:53 Plan Follow up with: [facility] [Outside] - 7 Days Prescriptions: Ciprofloxacin HCl [Ciprofloxacin TAB] 500 mg PO DAILY #6 tablet metroNIDAZOLE [Flagyl] 500 mg PO Q8HR #18 tablet Ondansetron [Zofran Odt] 4 mg PO QID PRN #20 tab.rapdis PRN Reason: Nausea Prednisone [predniSONE 10 mg (6-Day Pack, 21 Tabs)] 10 mg PO .TAPER #1 tab.ds.pk
== END 2016-05-02 13:19 | disposition home or self-care (01) | DRG 392 ==
LOC: ED 17:07 → 3A 04-30 09:46
PROVIDERS: ADMIT Family Medicine; ATTEND Internal Medicine
DX: K52.89 Other specified noninfective gastroenteritis and colitis (principal); R65.10 Systemic inflammatory response syndrome (SIRS) of non-infectious origin without acute organ dysfunction; E87.2 Acidosis; I10 Essential (primary) hypertension; K63.89 Other specified diseases of intestine; Z82.49 Family history of ischemic heart disease and other diseases of the circulatory system
CPT/HCPCS: 36415; 71020; 74177; 78582; 80053; 81001; 82140; 82550; 82553; 82805; 83690; 84484; 85025; 85379; 85610; 85730; 87040; 87086; 93005; 93010; 96361; 96374; 96375; A9540; A9558; J1644; J1885; J1956; J2405; J2543; J2920; J7030; J7040; Q9967

== ENCOUNTER 2017-03-02 21:18 | Emergency (ER) | payer SELFPAY ==
[2017-03-02] MEDS ORDERED: ZOFRAN IV ONE (21:37)
[2017-03-02] MEDS ORDERED: DILAUDID IV ONE ×3 (21:37→22:54)
[2017-03-02] MEDS ORDERED: ZOFRAN ONE (21:39)
[2017-03-02] MEDS ORDERED: DILAUDID ONE (21:40)
--- NOTE | 2017-03-02 21:41 | Emergency Department Report ---
ED Lower Extremity HPI - General Chief Complaint: Extremity Injury, Lower Stated Complaint: L FOOT PAIN Time Seen by Provider: 03/02/17 21:41 Source: patient, EMS Mode of arrival: Stretcher Limitations: No Limitations - History of Present Illness Initial Comments: Patient is a 51-year-old male presents to emergency room with a injury to left ankle via EMS. Patient is currently in an EMS splint. Patient complains of pain at 10 out of 10 even after fentanyl given by EMS. Gross deformity noted to the left ankle. Pain worse with movement and palpation per patient. Pain better with rest. She states he fell on ice and twisted his ankle patient states he heard a pop. Patient stated the pain and swelling started immediately MD Complaint: ankle injury -: Sudden Injury: Ankle: Left Type of Injury: inversion Place: home Severity scale (0 -10): 10 Improves With: immobilization, rest Worsens With: weight bearing, movement, palpation Context: fall, other (patient states she slipped on ice) Associated Symptoms: snap/pop sensation, swelling, unable to bear weight Treatments Prior to Arrival: splint, other (fentanyl given by EMS) - Related Data Home Medications Medication Instructions Recorded Confirmed Last Taken Lisinopril [Zestril TAB] 10 mg PO QDAY 04/30/16 04/30/16 Unknown Previous Rx's Medication Instructions Recorded Last Taken Type Cyclobenzaprine [Flexeril] 10 mg PO TID #12 tab 12/28/12 Unknown Rx Hydrocodone Bit/Acetaminophen 1 each PO Q6H PRN #12 tablet 12/28/12 4 Days Ago Rx [Lortab 5-500 Tablet] ~04/27/16 Ondansetron [Zofran Odt] 4 mg PO QID PRN #20 tab.rapdis 04/30/16 Unknown Rx Ciprofloxacin HCl [Ciprofloxacin 500 mg PO DAILY #6 tablet 05/02/16 Unknown Rx TAB] Prednisone [predniSONE 10 mg 10 mg PO .TAPER #1 tab.ds.pk 05/02/16 Unknown Rx (6-Day Pack, 21 Tabs)] metroNIDAZOLE [Flagyl] 500 mg PO Q8HR #18 tablet 05/02/16 Unknown Rx Oxycodone HCl/Acetaminophen 1 each PO Q6HR PRN #10 tablet 03/03/17 Unknown Rx [Percocet 7.5/325 mg] Allergies Allergy/AdvReac Type Severity Reaction Status Date / Time No Known Allergies Allergy Unverified 12/28/12 07:07 ED Review of Systems ROS: Stated complaint: L FOOT PAIN Other details as noted in HPI Comment: All other systems reviewed and negative Constitutional: denies: chills, fever Eyes: denies: eye pain, eye discharge, vision change ENT: denies: ear pain, throat pain Respiratory: denies: cough, shortness of breath, wheezing Cardiovascular: denies: chest pain, palpitations Endocrine: no symptoms reported Gastrointestinal: denies: abdominal pain, nausea, diarrhea Genitourinary: denies: urgency, dysuria Musculoskeletal: joint swelling. denies: back pain Skin: denies: rash, lesions Neurological: denies: headache, weakness, paresthesias Psychiatric: denies: anxiety, depression Hematological/Lymphatic: denies: easy bleeding, easy bruising ED Past Medical Hx - Past Medical History Hx Hypertension: Yes Hx HIV: No Additional medical history: back fracture - Surgical History Additional Surgical History: Back surgery - Family History Family history: hypertension - Social History Smoking Status: Never Smoker Substance Use Type: None - Medications Home Medications: Home Medications Medication Instructions Recorded Confirmed Last Taken Type Cyclobenzaprine [Flexeril] 10 mg PO TID #12 tab 12/28/12 05/01/16 Unknown Rx Hydrocodone Bit/Acetaminophen 1 each PO Q6H PRN #12 tablet 12/28/12 05/01/16 4 Days Ago Rx [Lortab 5-500 Tablet] ~04/27/16 Lisinopril [Zestril TAB] 10 mg PO QDAY 04/30/16 04/30/16 Unknown History Ondansetron [Zofran Odt] 4 mg PO QID PRN #20 tab.rapdis 04/30/16 Unknown Rx Ciprofloxacin HCl [Ciprofloxacin 500 mg PO DAILY #6 tablet 05/02/16 Unknown Rx TAB] Prednisone [predniSONE 10 mg 10 mg PO .TAPER #1 tab.ds.pk 05/02/16 Unknown Rx (6-Day Pack, 21 Tabs)] metroNIDAZOLE [Flagyl] 500 mg PO Q8HR #18 tablet 05/02/16 Unknown Rx Oxycodone HCl/Acetaminophen 1 each PO Q6HR PRN #10 tablet 03/03/17 Unknown Rx [Percocet 7.5/325 mg] ED Physical Exam - General Limitations: No Limitations General appearance: alert, in no apparent distress - Head Head exam: Present: atraumatic, normocephalic - Eye Eye exam: Present: normal appearance - ENT ENT exam: Present: mucous membranes moist - Neck Neck exam: Present: normal inspection - Respiratory Respiratory exam: Present: normal lung sounds bilaterally. Absent: respiratory distress - Cardiovascular Cardiovascular Exam: Present: regular rate, normal rhythm. Absent: systolic murmur, diastolic murmur, rubs, gallop - GI/Abdominal GI/Abdominal exam: Present: soft, normal bowel sounds - Rectal Rectal exam: Present: deferred - Extremities Exam Extremities exam: Present: tenderness, normal capillary refill, joint swelling ( left ankle swelling with deformity. Good pedal pulses noted. Good cap refill and color noted) - Back Exam Back exam: Present: normal inspection - Neurological Exam Neurological exam: Present: alert, oriented X3 - Psychiatric Psychiatric exam: Present: normal affect, normal mood - Skin Skin exam: Present: warm, dry, intact, normal color. Absent: rash ED Course Vital Signs 03/02/17 03/02/17 03/02/17 21:38 21:53 22:26 Temperature [ 98.4 F Pre-Procedure] Pulse Rate Pulse Rate [ 110 H Post-Procedure] Pulse Rate [Pre 109 H -Procedure] Respiratory 18 16 Rate Respiratory 10 L Rate [Post- Procedure] Respiratory 20 Rate [Pre- Procedure] Blood Pressure [Left] Blood Pressure 149/106 [Post-Procedure ] Blood Pressure 147/99 [Pre-Procedure] O2 Sat by Pulse Oximetry O2 Sat by Pulse 98 Oximetry [Post -Procedure] O2 Sat by Pulse 98 Oximetry [Pre- Procedure] 03/02/17 03/02/17 03/03/17 23:19 23:45 00:04 Temperature [ Pre-Procedure] Pulse Rate 111 H 100 H 95 H Pulse Rate [ Post-Procedure] Pulse Rate [Pre -Procedure] Respiratory 10 L 13 12 Rate Respiratory Rate [Post- Procedure] Respiratory Rate [Pre- Procedure] Blood Pressure 143/102 130/105 110/68 [Left] Blood Pressure [Post-Procedure ] Blood Pressure [Pre-Procedure] O2 Sat by Pulse 95 99 98 Oximetry O2 Sat by Pulse Oximetry [Post -Procedure] O2 Sat by Pulse Oximetry [Pre- Procedure] - Reevaluation(s) Reevaluation #1: Patient still lethargic but answering questions appropriately 03/02/17 23:28 Reevaluation #2: Back to baseline. Patient awake, alert and oriented 4. Patient answers questions appropriately 03/03/17 00:52 - Moderate Sedation Indications: fracture/dislocation redu Mallampati Airway Score: 2 Time of Last PO Intake: 05:30 Preparation: sales executive insurance applied, pulse oximeter, capnometry used, supplemental O2 applied, reversal agents at bedside, suction/airway equipment at bedside, IV secured Midazolam: IV Midazolam Dose: 5 (mg) Complications: none Interventions: oxygen applied Patient Tolerated Procedure: well Additional Comments: Addition medications used Dilaudid 2 mg and Versed 5 mg - Orthopedic Fracture Reduction Fracture #1 Consent Obtained: verbal consent, emergent situation Time Out Performed: Yes Side: left Fracture Reduction Location: tibia, fibula Analgesia: moderate sedation Technique: direct manipulation Post Reduction X-rays Demonstrate: acceptable reduction Post-Reduction Neuro Exam: intact Post-Reduction Vascular Exam: intact Splint Applied: Yes Patient Tolerated Procedure: well ED Lower Extremity MDM - Radiology Data Radiology results: report reviewed, image reviewed interpreted by me: Multiple fractures of the tib-fib and ankle dislocation noted and x-ray - Medical Decision Making Discussed case with Dr. Batista, orthopedics. Dr. Batista agrees patient is stable for discharge. Dr. Batista agrees to see patient as an outpatient on Tuesday. Referral information will be given to patient. Critical care attestation.: If time is entered above; I have spent that time in minutes in the direct care of this critically ill patient, excluding procedure time. ED Disposition Clinical Impression: Dislocation of ankle, left, closed, Closed left ankle fracture, Comminuted fracture of shaft of fibula, Ankle pain Disposition: TO HOME OR SELFCARE Is pt being admited?: No Does the pt Need Aspirin: No Condition: Stable Instructions: Ankle Fracture (ED), Ankle Dislocation (ED) Additional Instructions: Patient to follow up with primary care in 3-5 days. Patient to see orthopedist in a.m.. Discussed case with Dr. Batista, Dr. Batista agreed to see patient in a.m.. Patient to take ibuprofen Tylenol when necessary for pain. Patient to rest. Patient increase water. Patient to RICE injured limb. He is to return to ER if condition worsens. Prescriptions: Oxycodone HCl/Acetaminophen [Percocet 7.5/325 mg] 1 each PO Q6HR PRN #10 tablet PRN Reason: Pain Referrals: FRANCOISE OLVERA MD [Primary Care Provider] - 3-5 Days ISRAEL BATISTA MD [Staff Physician] - [facility] Time of Disposition: 00:55
[2017-03-02] MEDS ORDERED: NACL 0.9% 1000 ML 1,000 ML IV ONE (22:14)
[2017-03-02] MEDS ORDERED: DILAUDID IM ONE (22:39)
[2017-03-02] MEDS ORDERED: VERSED IV NR ×3 (23:00)
--- NOTE | 2017-03-02 23:05 | XRay Report ---
FINAL REPORT PROCEDURE: XR ANKLE 2V LT TECHNIQUE: LEFT ankle radiographs, AP and lateral views. HISTORY: ankle injury COMPARISON: No prior studies are available for comparison. FINDINGS: Fracture (s) and/or Dislocation(s): Comminuted fractures are noted involving lateral malleolus and anterior and posterior margins of distal tibial metaphysis. There is displacement of the fibula fracture fragments by above 1.8 centimeters. There is disruption of the ankle mortise. There are no radiopaque foreign bodies. IMPRESSION: Comminuted fractures involving distal tibia and fibula with dislocation of ankle joint..
--- NOTE | 2017-03-02 23:19 | XRay Report ---
FINAL REPORT PROCEDURE: XR ANKLE 2V LT TECHNIQUE: LEFT ankle radiographs, AP and lateral views. HISTORY: post reduction COMPARISON: 03/02/2017 2147 hours FINDINGS: Fracture (s) and/or Dislocation(s): Comminuted fracture of the lateral malleolus is again identified. There is been interval partial reduction of the fracture fragments. The major fragments are by about 1.1 centimeters. Tibia appears intact. Alignment: There is interval improvement in the alignment of ankle mortise. However there remains mild suppression of the joint space. Increased Bone mineralization: Normal. Foreign bodies: There are no radiopaque foreign bodies. There interval placement of a posterior slab. IMPRESSION: Interval partial reduction of the fracture dislocation as described above..
[2017-03-03 00:08] VITALS: BP 110/68
--- NOTE | 2017-03-03 01:16 | Emergency Department Report ---
Blank Doc - Documentation Documentation: After discharge done as brought to my attention that the patient had a high sugar with EMS. Blood sugar rechecked and found to be 311. Patient instructed to follow up with primary care as soon as possible in order to have further testing done of his sugar and possible diabetes. Patient denies polyuria and polydipsia. Patient denies nocturia. Patient made aware of elevated sugar. Please add hyperglycemia to diagnosis
== END 2017-03-03 01:28 | disposition home or self-care (01) ==
LOC: ED 21:18
DX: S82.452A Displaced comminuted fracture of shaft of left fibula, initial encounter for closed fracture (principal); S93.05XA Dislocation of left ankle joint, initial encounter; W18.30XA Fall on same level, unspecified, initial encounter; Y93.89 Activity, other specified; Y92.89 Other specified places as the place of occurrence of the external cause; Y99.8 Other external cause status
CPT/HCPCS: 27781; 73600; 82962; 96361; 96374; 96375; 96376; 99285; J1170; J2250; J2405